=== PATIENT | female | born 1980 | race Caucasian/White ===

== ENCOUNTER 2020-05-02 09:26 | Outpatient (CLI) | payer OTHER ==
[2020-05-02 10:31] VITALS: BP 124/90
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
== END 2020-05-02 09:27 | disposition home or self-care (01) ==
LOC: SC 09:26
PROVIDERS: ATTEND Nurse Practitioner Family
DX: G47.10 Hypersomnia, unspecified (principal); G47.8 Other sleep disorders; R06.81 Apnea, not elsewhere classified; R06.83 Snoring; E66.9 Obesity, unspecified; Z68.31 Body mass index [BMI] 31.0-31.9, adult
CPT/HCPCS: 99204; 99212

== ENCOUNTER 2020-05-28 19:36 | Outpatient (CLI) | payer OTHER | END 2020-05-28 19:37 | disposition home or self-care (01) | LOC: SC 19:36 | PROVIDERS: ATTEND Internal Medicine Pulmonary Disease | DX: G47.61 Periodic limb movement disorder (principal); G47.10 Hypersomnia, unspecified; R06.83 Snoring; R53.83 Other fatigue; G47.8 Other sleep disorders; R06.81 Apnea, not elsewhere classified; R41.89 Other symptoms and signs involving cognitive functions and awareness; E66.3 Overweight; Z68.31 Body mass index [BMI] 31.0-31.9, adult | CPT/HCPCS: 95810 ==

== ENCOUNTER 2022-02-04 18:47 | Outpatient (CLI) | payer OTHER ==
--- NOTE | 2022-02-05 10:43 | Ultrasound Report ---
PROCEDURE: Pelvic w/Transvaginal INDICATIONS: ABN VAG BLEEDING TECHNIQUE: Real-time scanning was performed of the pelvic organs, with image documentation. Additional endovagi nal scanning was necessary due to incomplete visualization of the adnexal and endometrial structures by transabdominal scanning. COMPARISON: None. FINDINGS: The uterine body measures 3.4 x 4.4 x 7.2 cm. Is an IUD which appears to be in appropriate position. No uterine mass. Right and left ovaries are normal in size with bilateral cysts/follicles. There is a probable hemorrh agic cyst in the left ovary measuring 2 cm. IMPRESSION: IUD appears to be in appropriate position. Reviewed by: Julio César Crews MD on 02/05/2022 10:42 AM PDT Approved by: Julio César Crews MD on 02/05/2022 10:42 AM PDT Station ID: [id number]
== END 2022-02-04 18:48 | disposition home or self-care (01) ==
LOC: DI 18:47
PROVIDERS: ATTEND Physician Assistant
DX: N93.9 Abnormal uterine and vaginal bleeding, unspecified (principal); Z30.431 Encounter for routine checking of intrauterine contraceptive device